=== PATIENT | male | born 1995 | race Caucasian/White ===

== ENCOUNTER 2017-02-16 15:11 | Inpatient (IN) | payer OTHER ==
[~2017-02-16] VITALS: Ht 195.6 cm; Wt 70.8 kg
[2017-02-16 16:00] LABS: MEAN CORPUSCULAR HEMOGLOBIN 30.7 pg (27.0-33.0); MEAN CORPUSCULAR HGB CONC 35.2 g/dl (32.0-36.5); MEAN CORPUSCULAR VOLUME 87.3 fl (80.0-96.0); WHITE BLOOD COUNT 5.2 K/mm3 (4.0-10.0)
[2017-02-16 16:16] LABS: METHADONE URINE NEGATIVE (NEGATIVE)
[2017-02-16 16:27] LABS: ALBUMIN 4.2 GM/DL (3.2-5.2); ALBUMIN/GLOBULIN RATIO 1.11 (1.00-1.93); ALKALINE PHOSPHATASE 58 U/L (45-117); ALT/SGPT 19 U/L (12-78); ANION GAP 7 MEQ/L (8-16); AST/SGOT 12 U/L (15-37); BILIRUBIN,DIRECT 0.2 MG/DL (0.0-0.2); BILIRUBIN,TOTAL 0.7 MG/DL (0.2-1.0); BLOOD UREA NITROGEN 14 MG/DL (7-18); CALCIUM LEVEL 9.3 MG/DL (8.5-10.1); CARBON DIOXIDE LEVEL 32 MEQ/L (21-32); CHLORIDE LEVEL 97 MEQ/L (98-107); CREATININE FOR GFR 1.08 MG/DL (0.70-1.30); GLUCOSE, FASTING 105 MG/DL (70-105); POTASSIUM SERUM 4.1 MEQ/L (3.5-5.1); SODIUM LEVEL 136 MEQ/L (136-145)
[2017-02-16] MEDS ORDERED: ACETAMINOPHEN TAB 650MG DOSE (2X325MG) PO PRN (18:00)
[2017-02-16] MEDS ORDERED: MOM 30ML SUSPENSION UDC PO PRN (18:00)
[2017-02-16] MEDS ORDERED: traZODone 50 MG TAB PO PRN (18:00)
[2017-02-16] MEDS ORDERED: MAALOX 30 ML SUSP *UDC PO PRN (18:00)
[2017-02-16] MEDS ORDERED: hydrOXYzine 50 MG TAB PO PRN (18:00)
[2017-02-16 19:01] VITALS: BP 121/62
[2017-02-17 07:13] VITALS: BP 144/79
--- NOTE | 2017-02-17 11:03 | HPEPDOC ---
Medical History and Physical Date of Admission Feb 16, 2017 at 17:53 History and Physical PCP: [facility] ATTENDING: Dr. Eddi Angelo HPI: 21yoM admitted to [facility] for unspecified depressive disorder, being medically examined today. No acute medical complaints today. Denies any fevers, chills, weakness, fatigue, HOUSE, CP, SOB, cough, palpitations, abdominal pain, N/V /D or changes in bowel or bladder habits. PMHx: Depression Anxiety Asperger syndrome PSHX: [place] teeth extraction SOCHX: Resides in: [place], from [place] Marital Status: Single Kids: None Employment: Active duty Tobacco use: Denies ETOH: Denies Illicit Drugs: Denies IV Drug Use: Denies Tattoos done unprofessionally: Denies FAMHX: Mother: Alive, diabetes Father: Alive, well Siblings: 2 brothers Alive, well Children: None Unexpected deaths due to medical reasons: None. ROS: As noted in HPI, otherwise 11pt ROS of systems reviewed and unremarkable. PE: GEN: 21 yo M, appears stated age. Well-nourished, well developed. No acute distress. Alert and oriented x 3. Pleasant, interactive. HEENT: Normocephalic, atraumatic. Pupils are equal, round, and reactive to light. Extraocular movements are intact. No nystagmus appreciated. Sclera are nonicteric. Conjunctiva without injection. Nose midline. Nasal turbinates without bogginess. EACs both patent BL. TMs both visualized and rivera with good cone of light, no bulging or erythema. No facial asymmetry. Moist mucous membranes. Dentition fair. Pharynx pink and moist, no cobblestoning. Neck supple , trachea midline. No lymphadenopathy or thyromegaly appreciated. CHEST: Regular rate and rhythm, +S1, +S2 LUNGS: Clear to auscultation bilaterally. No wheezes, rales, or rhonchi. Breathing appears symmetric and easy. Patient is speaking in full sentences. No accessory muscle use. ABD: Round, soft, non-tender, non-distended. +Bowel sounds throughout. No rebound or guarding. No costovertebral angle tenderness. EXT: Pulses 2+ bilaterally dorsalis pedis and radial. No lower extremity edema appreciated. SKIN: [place], dry, warm. Capillary refill <2sec. No rashes. NEURO: Alert and oriented x 3. Cranial nerves III-XII are intact. No focal deficits appreciated. EKG: Pending. A&P: 21yoM admitted to [facility] for unspecified depressive disorder 1. Psych. Plan per Psychiatry. Obtain baseline EKG to assure the safety of psychiatric medications as they can prolong the QT interval. 2. Recent smallpox vaccine 02/03/17. Continue to cover with dry dressing. Confirm any further proper precautions/recommendations with infection control. 3. Follow up with PCP on discharge. 4. Staff member José Luis present throughout exam Vital Signs Vital Signs Date Time Temp Pulse Resp B/P (MAP) Pulse Ox O2 Delivery O2 Flow Rate FiO2 02/17/17 07:13 98.5 65 16 144/79 (100) Room Air 02/16/17 19:01 99 Laboratory Data Labs 24H Laboratory Tests 2 02/16/17 15:38: Urine Amphetamines Screen NEGATIVE, Urine Benzodiazepines Screen NEGATIVE, Urine Opiates Screen NEGATIVE, Urine Methadone Screen NEGATIVE, Urine Barbiturates Screen NEGATIVE, Urine Phencyclidine Screen NEGATIVE, Urine Cocaine Metabolite Screen NEGATIVE, Urine Cannabinoids Screen NEGATIVE 02/16/17 15:41: Anion Gap 7L, Calcium Level 9.3, Aspartate Amino Transf (AST/SGOT) 12L, Alanine Aminotransferase (ALT/SGPT) 19, Alkaline Phosphatase 58, Total Bilirubin 0.7, Direct Bilirubin 0.2, Total Protein 8.0, Albumin 4.2, Albumin/Globulin Ratio 1.11, Thyroid Stimulating Hormone (TSH) 1.120, Salicylates Level < 1.7L, Acetaminophen Level < 2.0L, Ethyl Alcohol Level < 0.003 CBC/BMP Laboratory Tests 02/16/17 15:41 Red Blood Count 4.68, Mean Corpuscular Volume 87.3, Mean Corpuscular Hemoglobin 30.7, Mean Corpuscular Hemoglobin Concent 35.2, Red Cell Distribution Width 12.0 Home Medications No Active Prescriptions or Reported Meds Allergies Coded Allergies: No Known Allergies (Unverified , 02/16/17) Ciera Fregoso Feb 17, 2017 11:03
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
[2017-02-17 18:00] VITALS: BP 127/58
[2017-02-18 06:28] VITALS: BP 103/61
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
--- NOTE | 2017-02-18 17:11 | ECGEPIP ---
Stationary ECG Study [facility] Test Date: 2017-02-18 Pat Name: CAMRON ROA Department: Room: [place] [address] Gender: M Supervisor Dyer: MADELEINE : 1995 Requested By: Ciera Fregoso Order Number: [id number] Reading MD: Eddi Angelo Measurements Intervals [place] Rate: 57 P: 32 NH: 145 QRS: 66 QRSD: 84 T: 52 QT: 390 QTc: 380 Interpretive Statements SINUS BRADYCARDIA WITH SINUS ARRHYTHMIA Comparison tracing not on file Electronically Signed On 02-18-2017 17:11:42 EDT by Eddi Angelo
[2017-02-18 18:00] VITALS: BP 104/54
[2017-02-19 06:40] VITALS: BP 111/63
[2017-02-19 18:18] VITALS: BP 105/58
[2017-02-20 06:11] VITALS: BP 109/58
[2017-02-20 18:27] VITALS: BP 110/56
[2017-02-21 06:40] VITALS: BP 105/54
--- NOTE | 2017-02-21 16:31 | MHIPN ---
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 The patient did have a history of prior psychiatric admissions to [facility] but he has had three previous hospitalizations between the age of 9 and 10 , indicated an attempt to suicide at age 10 by jumping off his family's deck. The patient indicated that after his girlfriend broke up with him he experience fleeting suicidal ideation. The patient reports that he was very hurt when his girlfriend broke up with him because he had plans for the future, he was full of dreams. He had considered marriage and having children with his girlfriend. He says that he not suicidal at this time, not homicidal and not psychotic. SUBJECTIVE: The patient reports feeling hurt after a breakup with girlfriend, but he claims that he has been learning from patients and his higher ups in the [employer] about his current situation. He says that attending groups has been helpful as well as specializing with other people. He says he plans to give his ex-girlfriend her space because she complained to him that he was overwhelming since he kept sending her text messages and kept trying to talk to her throughout the day. He says that both of them are from [place] and that being away from her contributed to his depression and he also reports that being away from his family made him feel depressed. He says in a couple of months he will be able to go back to [place] and visit. He is considering going to talk to her to see the possibility of reconciliation. Currently he denies suicidal ideation. OBJECTIVE: The patient is alert, cooperative, oriented times three, pleasant. Has good eye contact and good rapport. The patient has spontaneous and fluid speech, thought processes intact and thought content is coherent. He has not delusional thoughts, denies thought disorder, denies suicidal and homicidal ideation. His memory is intact, attention and concentration are fair. He is oriented times three, his fund of knowledge is fair. Insight and judgment are still limited and impulse control is fair. DIAGNOSES: Adjustment disorder with mixed features of depressed mood and insight. As per primary provider, the patient was weaned off medication prior to enlisting in the , but she has reported it will be useful to restart it in order to function as expected in is his role. The patient is trying to minimize his illness, he is trying to present himself as being calm, cool and collected, but he is still very sad about his girlfriend's decision to break up with him. He realizes that it was his fault because he was very controlling and kept sending her text messages, she told him she felt suffocated. The patient probably could benefit from fluvoxamine or clomipramine for obsessiveness. MANAGEMENT PLAN: Will continue medications as per provider and as she had reported it will be interesting to know what medications he was on. He will continue to benefit from groups because his insight and judgment are still limited. Will followup. MILTON
[2017-02-21 18:00] VITALS: BP 139/77
--- NOTE | 2017-02-21 18:34 | MHIPNPDOC ---
[facility] Progress Note Progress Note DATE OF SERVICE: 02/21/17 HISTORY: Patient is a 21-year-old male who was brought to [facility] ER for evaluation by police due to experiencing increasing depression with suicidal ideation for the past 5 days after 19-year-old girlfriend of 5 months broke up with him via text message. Patient has had no prior psychiatric admissions at [facility], however, indicates he has had 3 prior hospitalizations between the ages of 9 and 10, indicates he attempted suicide at age 10 by " jumping off my family's deck." Patient denies history of any other suicide attempts and denies history of self-injurious behavior. Patient indicates just after girlfriend broke up with him he experienced fleeting passive suicidal ideation, denied ever having plan or intent to harm self but notes, "I was in a lot of emotional pain." There is concern that patient was engaging in "stalking type behavior via social media" in his interactions with the GF. Manager Internal met with patient today to assess treatment progress on inpatient unit. Patient is observed to be lying in bed, was encouraged to be up out of bed and visible on unit. Patient rates current anxiety level is 3/10, depression 3/10, denies suicidal and homicidal ideation, denies auditory and visual hallucinations, denies urge to engage in self-injurious behavior. Patient reports improvement in energy level and concentration and focus, denies challenges with appetite, and describes sleep as "fine." Patient continues to decline psychotropic medications citing lack of need, states he does not remember what medications he has taken in the past, adds he has not taken medication since age 10. When asked how patient feels about his recent breakup with ex-girlfriend he states, "I feel like I'm handling it okay, I still have hope that she will want to work things out with me but I'm giving her space. I may try to speak with her when I go on leave." Patient denies ever engaging in stalking-like behavior of ex-girlfriend. Patient states command visited over the weekend and he indicates visitation went well. Patient denies symptoms of physical pain and presents with no signs of acute distress at time of interaction. VITAL SIGNS: See below. NEW TEST RESULTS: No new results MEDICAL/SURGICAL HISTORY: Patient denies history of chronic medical problems, autism spectrum disorder, wisdom teeth extraction, denies history of seizure or head injury. Recent smallpox vaccine on 02/03/17, PA has evaluated and recommended covered with dry dressing and has instructed nursing to confirm any further recommendations with infection control. Labs on admission indicated low HCT, chloride, anion gap, and AST UDS negative 02/18/17 EKG SINUS BRADYCARDIA WITH SINUS ARRHYTHMIA Comparison tracing not on file CURRENT MEDICATIONS: See below. 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 Speech: Is monotone, generally spontaneous. Of normal rate and volume, coherent Language skills within normal limits Thought processes including: Linear, logical, goal-directed, perseverative to ex -girlfriend Thought content: Rational, logical, no tangentiality or paranoia noted, remains fixated on ex-girlfriend Abstract reasoning, and computation: Adequate Description of associations: Intact Description of abnormal or psychotic thoughts: Patient denies suicidal and homicidal ideation, denies auditory and visual hallucinations, does not appear to be responding to internal stimuli, does not endorse paranoid ideation, is not exhibiting bizarre ideation regarding girlfriend today, denies preoccupation with violence, remains fixated on ex-girlfriend Judgment: Limited, some improvement noted Insight: Limited, some improvement noted Orientation: A and O 3 Recent and remote memory: good but he cannot provide details of his psychiatric treatment, can't recall names of meds and doses. Attention span and concentration: adequate Fund of knowledge: mildly impaired Mood: "I feel okay today." Patient appears mildly anxious, moderately depressed , no mood lability noted Affect: Blunted, brightens at times, congruent with mood DIAGNOSES: Adjustment disorder with mixed anxiety and depressed mood, autism spectrum disorder. Rule out major depressive disorder, rule out anxiety disorder ASSESSMENT: Patient continues to adjust to unit, isolates to room at times between groups, at other times is visible on the unit, has been attending most groups. Patient is pleasant and cooperative with staff, engageable, has presented with no behavior management challenges. Patient continues to decline psychotropic medications, indicates he does not feel he needs medications, is unable to recall what medications he has taken in the past. Patient denies suicidal and homicidal ideation and verbalizes wariness of how to access supportive services on the unit if needed. Attempts continue to be made to access background treatment information on patient. Patient indicates he wants to return to the [employer] to complete his contract, is agreeable to participating in outpatient psychotherapy through [facility], is aware that referral to IOP may also be recommended at time of discharge. MANAGEMENT PLAN: Encourage patient to take psychotropic medication to address symptoms Maintain safety precautions Patient to attend groups and participate in unit programming to develop coping strategies Engage patient in discharge planning process and arrange meeting with command to evaluate safe discharge planning when appropriate Evaluate need for IOP recommendation Patient to follow up with [facility] upon discharge TIME SPENT: 25 minutes. Vital Signs Vital Signs Date Time Temp Pulse Resp B/P (MAP) Pulse Ox O2 Delivery O2 Flow Rate FiO2 02/21/17 18:00 98.5 91 16 139/77 (97) 02/19/17 06:40 Room Air 02/16/17 19:01 99 Current Medications Current Medications Acetaminophen (Tylenol Tab) 650 mg Q6HP PRN PO HEADACHE or DISCOMFORT Last administered on 02/19/17t 23:23; Start 02/16/17 at 18:00; Stop 03/18/17 at 17:59 Al Hydrox/Mg Hydrox/Simethicone (Mylanta) 30 ml Q4HP PRN PO HEARTBURN/ INDIGESTION; Start 02/16/17 at 18:00; Stop 03/18/17 at 17:59 Home Med (Med Rec Complete!) ASDIRECTED XX ; Start 02/16/17 at 17:00; Stop at 17:00; Status DC Hydroxyzine HCl (Atarax) 50 mg Q6HP PRN PO ANXIETY/AGITATION; Start 02/16/17 at 18:00; Stop 03/18/17 at 17:59 Magnesium Hydroxide (Milk Of Magnesia) 30 ml DAILYPRN PRN PO CONSTIPATION; Start 02/16/17 at 18:00; Stop 03/18/17 at 17:59 Trazodone HCl (Desyrel) 50 mg QHSP PRN PO INSOMNIA; Start 02/16/17 at 18:00; Stop 03/18/17 at 17:59 Allergies Coded Allergies: Carbamazepine (Verified Adverse Reaction, Severe, aggression/violent, ) Verified by patient's mother [place] (Verified Adverse Reaction, Severe, thyroid arrest, resulted in hospitalization, 02/22/17) verified by patient's mother Gogo Pickard Feb 21, 2017 18:34
--- NOTE | 2017-02-21 18:51 | MHIPN ---
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 SUBJECTIVE: Patient says that he had a headache last night, Tuesday, February 19, he slept well and has good appetite. He says that his sadness is 1-2/10 scale and his anxiety is a 2 to 3 out of a 10 scale. He reports that he still has plans of going back in March to [place], to see his parents before he gets deployed [place] and he will take advantage of this trip to visit his ex-girlfriend and see if he can reconsolidate with her. Denies suicidal ideations. OBJECTIVE: Patient is alert, oriented times three, pleasant and cooperative. He has fluid and spontaneous speech, his thought process is intact. His thought content is goal directed. He denies homicidal and suicidal ideation, denies psychosis and denies anxiety or depression at this time. He recent memories are intact, his attention and concentration are fair, abstract thinking and concentration are good, judgment and insight are still limited and impulse control is fair. DIAGNOSIS: Adjustment disorder with mixed anxiety and depressed mood, rule out major depressive disorder, rule out anxiety disorder, rule out delusional disorder. MANAGEMENT PLAN: Patient will continue with same medications and will continue with individual and group psychotherapy until he is safe to be discharged. Will followup.
[2017-02-22 06:00] VITALS: BP 108/59
--- NOTE | 2017-02-22 15:12 | MHIPNPDOC ---
[facility] Progress Note Progress Note DATE OF SERVICE: 02/22/17 HISTORY: Patient is a 21-year-old male who was brought to [facility] ER for evaluation by police due to experiencing increasing depression with suicidal ideation for the past 5 days after 19-year-old girlfriend of 5 months broke up with him via text message. Patient has had no prior psychiatric admissions at [facility], however, indicates he has had 3 prior hospitalizations between the ages of 9 and 10, indicates he attempted suicide at age 10 by " jumping off my family's deck." Patient denies history of any other suicide attempts and denies history of self-injurious behavior. Patient indicates just after girlfriend broke up with him he experienced fleeting passive suicidal ideation, denied ever having plan or intent to harm self but notes, "I was in a lot of emotional pain." There is concern that patient was engaging in "stalking type behavior via social media" in his interactions with the GF. Automation Test Engineer met with patient today to assess treatment progress on inpatient unit. Patient is observed to be lying in bed, was encouraged to be up out of bed and visible on unit. Patient rates current anxiety level as 2/10, depression 1/10 which she attributes to "being here," denies suicidal and homicidal ideation, denies auditory and visual hallucinations, denies urge to engage in self- injurious behavior. Patient reports improvement in energy level and concentration and focus, denies challenges with appetite, notes appetite remains stable. Patient continues to decline psychotropic medications citing lack of need, reiterates he does not remember what medications he has taken in the past. Patient indicates he began taking psychotropic medication age 10 due to "Asperger's," notes he was tapered off medications under supervision of PCM as sophomore in high school. Has not taken medication since age 10. Today when asked how patient feels about his recent breakup with ex-girlfriend he states, "I feel totally different, not down and feeling like crap anymore, I can move on. If we don't get back together again it's not the end of the world." Patient continues to deny ever engaging in stalking-like behavior of ex-girlfriend, notes he has been in contact with his mother over the telephone and indicates mother is aware that he is currently hospitalized. Patient denies symptoms of physical pain and presents with no signs of acute distress at time of interaction. 02/22/17 summer school coordinator indicates conversation with mother revealed that patient has responded well to Zoloft in the past. Patient's mother stated patient had violent and aggressive reaction to Tegretol and experienced thyroid arrest with lithium. Patient's mother noted that the only time patient became aggressive toward others was when he was experiencing adverse reaction to medication. VITAL SIGNS: See below. NEW TEST RESULTS: No new results MEDICAL/SURGICAL HISTORY: Patient denies history of chronic medical problems, autism spectrum disorder, wisdom teeth extraction, denies history of seizure or head injury. Recent smallpox vaccine on 02/03/17, PA has evaluated and recommended covered with dry dressing and has instructed nursing to confirm any further recommendations with infection control. Labs on admission indicated low HCT, chloride, anion gap, and AST UDS negative 02/18/17 EKG SINUS BRADYCARDIA WITH SINUS ARRHYTHMIA Comparison tracing not on file CURRENT MEDICATIONS: See below. 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 Speech: Is less monotone today, generally spontaneous. Of normal rate and volume , coherent Language skills within normal limits Thought processes including: Linear, logical, goal-directed, perseverative to ex -girlfriend Thought content: Rational, logical, no tangentiality or paranoia noted, is not fixated on ex-girlfriend today Abstract reasoning, and computation: Adequate Description of associations: Intact Description of abnormal or psychotic thoughts: Patient denies suicidal and homicidal ideation, denies auditory and visual hallucinations, does not appear to be responding to internal stimuli, does not endorse paranoid ideation, is not exhibiting bizarre ideation regarding girlfriend today, denies preoccupation with violence. Judgment: Fair, has improved during treatment Insight: Fair, has improved during treatment Orientation: A and O 3 Recent and remote memory: good but he cannot provide details of his psychiatric treatment, unable to recall names of previous medications. Attention span and concentration: Adequate Fund of knowledge: Mildly impaired Mood: "I feel good, a lot better, I think I'm ready to get back to work." Patient reports very low levels of anxiety and depression, no mood lability noted Affect: Mild constriction, brightens at times, congruent with mood DIAGNOSES: Adjustment disorder with mixed anxiety and depressed mood, autism spectrum disorder by patient report. Rule out major depressive disorder, rule out anxiety disorder ASSESSMENT: Patient continues to adjust to unit, is generally visible on the unit, has been attending most groups, is pleasant and cooperative with staff, and has presented with no behavior management challenges. Patient is again encouraged to try to attend all unit groups, is more engageable today, brighter , makes no mention of ex-girlfriend during interaction until subject is raised by copywriter. Patient denies symptoms of irritability, agitation, impulsivity, and mood lability. Patient verbalizes increased insight pertaining to termination of relationship and how his behavior at time of breakup may have appeared as stalking-like behavior. Patient continues to decline psychotropic medications citing lack of need. Patient denies suicidal and homicidal ideation and verbalizes wariness of how to access supportive services on the unit if needed. [facility]'s [facility], and metal flow coordinator has made contact with patient's mother who is verified the patient responded well to Zoloft in treatment in the past and indicated that she feels patient is stable and ready for discharge. Will continue to monitor patient for safety and discharge readiness. Patient indicates he wants to return to the [employer] to complete his contract, is agreeable to participating in outpatient psychotherapy through [facility] , is aware that referral to IOP may also be recommended at time of discharge. Patient is aware that he is tentatively scheduled for discharge tomorrow. MANAGEMENT PLAN: Maintain safety precautions Patient to continue to attend groups and participate in unit programming to develop coping strategies Engage patient in discharge planning process and [facility] to [facility] planning when appropriate Evaluate need for IOP recommendation Patient to follow up with [facility] within 5-7 days of discharge TIME SPENT: 35 minutes. Vital Signs Vital Signs Date Time Temp Pulse Resp B/P (MAP) Pulse Ox O2 Delivery O2 Flow Rate FiO2 02/22/17 06:00 98.2 70 16 108/59 (75) 99 Room Air Current Medications Current Medications Acetaminophen (Tylenol Tab) 650 mg Q6HP PRN PO HEADACHE or DISCOMFORT Last administered on 02/19/17t 23:23; Start 02/16/17 at 18:00; Stop 03/18/17 at 17:59 Al Hydrox/Mg Hydrox/Simethicone (Mylanta) 30 ml Q4HP PRN PO HEARTBURN/ INDIGESTION; Start 02/16/17 at 18:00; Stop 03/18/17 at 17:59 Home Med (Med Rec Complete!) ASDIRECTED XX ; Start 02/16/17 at 17:00; Stop at 17:00; Status DC Hydroxyzine HCl (Atarax) 50 mg Q6HP PRN PO ANXIETY/AGITATION; Start 02/16/17 at 18:00; Stop 03/18/17 at 17:59 Magnesium Hydroxide (Milk Of Magnesia) 30 ml DAILYPRN PRN PO CONSTIPATION; Start 02/16/17 at 18:00; Stop 03/18/17 at 17:59 Trazodone HCl (Desyrel) 50 mg QHSP PRN PO INSOMNIA; Start 02/16/17 at 18:00; Stop 03/18/17 at 17:59 Allergies Coded Allergies: Carbamazepine (Verified Adverse Reaction, Severe, aggression/violent, ) Verified by patient's mother [place] (Verified Adverse Reaction, Severe, thyroid arrest, resulted in hospitalization, 02/22/17) verified by patient's mother Gogo Pickard Feb 22, 2017 15:12
[2017-02-22 18:00] VITALS: BP 126/78
[2017-02-23 07:06] VITALS: BP 117/54
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
== END 2017-02-23 13:00 | disposition home or self-care (01) | DRG 882 ==
LOC: M ED 15:11 → M ED INP 17:53 → M PSY 18:55
PROVIDERS: ADMIT Psychiatry & Neurology Psychiatry; ATTEND Psychiatry & Neurology Psychiatry
DX: F43.23 Adjustment disorder with mixed anxiety and depressed mood (principal); R45.851 Suicidal ideations; F41.9 Anxiety disorder, unspecified; F32.9 Major depressive disorder, single episode, unspecified; Z91.5 Personal history of self-harm; Z88.8 Allergy status to other drugs, medicaments and biological substances